=== PATIENT | female | born 1990 | race Caucasian/White ===

== ENCOUNTER 2018-09-06 04:50 | Inpatient (IN) | payer OTHER ==
[2018-09-06] MEDS ORDERED: BUTORPHANOL TARTRATE 1 MG/ML VIAL IVPB ONE (05:45)
[2018-09-06] MEDS ORDERED: PROMETHAZINE HCL 25 MG/1 ML VIAL IVPUSH ONE (05:45)
--- NOTE | 2018-09-06 05:51 | HP ---
Past Medical History - Admission Chief Complaint: Rupture of membranes at 2 am History of Present Illness: 28 y/o P0 female with SIUP at 38.4 weeks here with complaints of spontaneous rupture of membranes around 2 am. No VB. Occasional Ctx. +FM. complicated by anemia, otherwise no complications. - Past Medical History Cardiovascular: No: AFIB, HTN Pulmonary: No: Asthma, COPD Gastrointestinal: No: GERD, Ulcerative Colitis Hepatobiliary: No: Hepatitis B Renal/: No: UTI Reproductive: No: Fibroids, Polycystic Ovary Syndrome Heme/Onc: Yes: Anemia Infectious Disease: No: HIV, MRSA Psych: No: Bipolar, Depression - Past Surgical History Hx Myomectomy: No Hx Transabdominal Cerclage: No - Smoking History Smoking history: Never smoked Aproximately how many cigarettes per day: 0 - Alcohol/Substance Use Hx Alcohol Use: No - Social History ADL: Independent History of Recent Travel: No Home Medications - Allergies Allergies/Adverse Reactions: Allergies Allergy/AdvReac Type Severity Reaction Status Date / Time No Known Allergies Allergy Verified 02/09/16 17:16 - Home Medications Home Medications: Ambulatory Orders Ascorbic Acid [Vitamin C -] 500 mg PO DAILY #30 tablet 02/10/16 Ferrous Sulfate [Feosol] 325 mg PO DAILY #30 tablet 02/10/16 Levothyroxine [Synthroid -] 150 mcg PO DAILY 02/10/16 Review of Systems - Review of Systems Constitutional: reports: No Symptoms Eyes: reports: No Symptoms HENT: reports: No Symptoms Neck: reports: No Symptoms Cardiovascular: reports: No Symptoms Respiratory: reports: No Symptoms Gastrointestinal: reports: No Symptoms Genitourinary: reports: Other (leaking fluid) Breasts: reports: No Symptoms Reported Musculoskeletal: reports: No Symptoms Integumentary: reports: No Symptoms Neurological: reports: No Symptoms Endocrine: reports: No Symptoms Hematology/Lymphatic: reports: No Symptoms Psychiatric: reports: No Symptoms Physical Exam - Maternity Constitutional: Yes: Well Nourished, No Distress, Calm Eyes: Yes: Conjunctiva Clear, EOM Intact HENT: Yes: Atraumatic, Normocephalic Cardiovascular: Yes: Regular Rate and Rhythm Lungs: Clear to auscultation - Abdominal Exam/OB Fundal Height: 38 Number of Fetuses: Single Presentation: Vertex Contractions: Yes Regularity: Irregular Intensity: Mild Heart Rate (range): 130 Category: I Accelerations: Uniform Decelerations: None - Vaginal Exam/OB Dilatation (cm): 0 Effacement (%): 0 Amniotic Membrane Status: Ruptured (vaginal exam per nursing staff) Station: -3 - Physical Exam Psychiatric: Yes: Alert, Oriented Problem List - Problems (1) Spontaneous rupture of amniotic membranes Code(s): TSJ2599 - (2) Term Code(s): Z34.80 - ENCOUNTER FOR SUPRVSN OF NORMAL , UNSP TRIMESTER Assessment/Plan SIUP at 38+ weeks, SROM admit to L&D start IV fluids ok to ambulate if no contractions on her own will induce labor
[2018-09-06] MEDS ORDERED: DEXTROSE 5%-LACTATED RINGERS 1,000 ML IV ONE (06:15)
[2018-09-06 07:10] VITALS: BMI 26.1
[2018-09-06 07:17] LABS: BASO % 0.6 % (0-2.0); EOS % 0.8 % (0-4.5); HEMATOCRIT 32.8 % (32.4-45.2); HEMOGLOBIN 11.2 GM/dL (10.7-15.3); LYMPH % 18.9 % (8-40); MCH 28.7 pg (25.7-33.7); MCHC 34.1 g/dl (32.0-36.0); MEAN CELL VOLUME 84.1 fl (80-96); MEAN PLT VOLUME 8.9 fl (7.5-11.1); MONO % 7.9 % (3.8-10.2); NEUT % 71.8 % (42.8-82.8); PLATELET COUNT 241 K/MM3 (134-434); WHITE BLOOD COUNT 7.5 K/mm3 (4.0-10.0)
[2018-09-06 07:28] LABS: INR 0.84 (0.83-1.09); PROTHROMBIN TIME (PATIENT) 9.9 SEC (9.7-13.0)
[2018-09-06 07:31] LABS: ACTIVATED PTT 28.8 SECONDS (25.2-36.5)
[2018-09-06 07:46] LABS: ANION GAP 8 MMOL/L (8-16); BLOOD UREA NITROGEN 14 mg/dL (7-18); CALCIUM 8.3 mg/dL (8.5-10.1); CHLORIDE 106 mmol/L (98-107); CO2 23 mmol/L (21-32); CREATININE 0.4 mg/dL (0.55-1.3); GLUCOSE,RANDOM 78 mg/dL (74-106); POTASSIUM 3.8 mmol/L (3.5-5.1); SODIUM 136 mmol/L (136-145)
[2018-09-06] MEDS ORDERED: TUBERCULIN PPD 5 TU/0.1ML SYRINGE (IN PATIENT USE ONLY) ID ONE (09:30)
[2018-09-06] MEDS: DEXTROSE 5%-LACTATED RINGERS 1,000 ML IV SCH ×2 (13:26→22:00)
[2018-09-06] MEDS ORDERED: DINOPROSTONE 10 MG VAGINAL SUPPOSITORY VG ONE (18:29)
--- NOTE | 2018-09-06 18:29 | PN ---
Ante-Partal Exam - Subjective Subjective: Pt with mild contractions Vital Signs: Vital Signs Temperature 98.4 F 09/06/18 17:00 Pulse Rate 81 09/06/18 17:00 Respiratory Rate 20 09/06/18 17:00 Blood Pressure 100/51 L 09/06/18 17:00 O2 Sat by Pulse Oximetry (%) Bleeding: No Headache: No Visual changes: No Right upper quadrant pain: No - Contractions Contractions: No Monitor Mode: External - Exam during Labor Variability: Moderate Category: I Monitor Decelerations: None Exam: Vaginal Dilatation (cm): closed Effacement (%): long Amniotic Membrane Status: Ruptured Amniotic Fluid: Clear Presentation: Vertex - Intrapartum Hemorrhage Risk Risk Score: 0 Risk Level: Low Risk - Assessment/Plan Assessment/Plan: IUP at 38.6 weeks Cat 1 srom Plan cervidil
[2018-09-06] MEDS ORDERED: AMPICILLIN - 2 GM in SODIUM CHLORIDE 100 ML IVPB ONE (18:30)
[2018-09-06] MEDS ORDERED: AMPICILLIN SODIUM 2 GM VIAL ONE (20:02)
[2018-09-07] MEDS ORDERED: BUTORPHANOL TARTRATE 1 MG/ML VIAL ONE ×3 (00:15→07:53)
[2018-09-07] MEDS ORDERED: PROMETHAZINE HCL 25 MG/1 ML VIAL ONE ×2 (00:16→07:53)
[2018-09-07] MEDS ORDERED: AMPICILLIN SODIUM 1 GM VIAL ONE ×4 (00:19→13:04)
[2018-09-07] MEDS: AMPICILLIN - 1 GM in SODIUM CHLORIDE 100 ML IVPB SCH ×6 (04:00→18:33)
[2018-09-07] MEDS ORDERED: FENTANYL/BUPIVACAINE/NS/PF - PCEA - 50 ML DISP.SYRIN EP ONE (07:45)
[2018-09-07] MEDS ORDERED: OXYTOCIN 20 UNITS in 0.9% NS 20 UNIT/1,000 ML INFUS.BAG IV ONE (08:15)
[2018-09-07] MEDS ORDERED: LIDOCAINE HCL 1% PRESERVATIVE FREE - 30ML VIAL ONE (08:16)
[2018-09-07] MEDS ORDERED: BUTORPHANOL TARTRATE 2 MG/ML VIAL IVPUSH PRN (08:34)
--- NOTE | 2018-09-07 08:46 | PN ---
Ante-Partal Exam - Subjective Vital Signs: Vital Signs Temperature 98.7 F 09/07/18 07:00 Pulse Rate 63 09/07/18 08:00 Respiratory Rate 20 09/07/18 08:00 Blood Pressure 136/69 09/07/18 08:00 O2 Sat by Pulse Oximetry (%) Bleeding: No Headache: No Visual changes: No Right upper quadrant pain: No - Contractions Contractions: Yes Regularity: Regular Intensity: Moderate Monitor Mode: External - Exam during Labor Variability: Moderate Category: I Monitor Decelerations: None Exam: Vaginal Dilatation (cm): 9cm Presentation: Vertex Station: 0 - Intrapartum Hemorrhage Risk Risk Score: 0 Risk Level: Low Risk - Assessment/Plan Assessment/Plan: Active Labor Cat 1 Plan continue present management rashid Barraganergan
[2018-09-07] MEDS ORDERED: PROMETHAZINE HCL 25 MG/1 ML VIAL IVPB ONE (09:00)
--- NOTE | 2018-09-07 12:54 | PN ---
Ante-Partal Exam - Subjective Subjective: Pt with urge to push Vital Signs: Vital Signs Temperature 98.8 F 09/07/18 12:00 Pulse Rate 64 09/07/18 12:00 Respiratory Rate 20 09/07/18 12:00 Blood Pressure 108/60 09/07/18 12:00 O2 Sat by Pulse Oximetry (%) - Exam during Labor Category: II Monitor Accelerations: Present Monitor Decelerations: Variable Exam: Vaginal Dilatation (cm): 10 Amniotic Membrane Status: Ruptured Presentation: Vertex Station: +2 - Intrapartum Hemorrhage Risk Risk Score: 0 Risk Level: Low Risk - Assessment/Plan Assessment/Plan: Cat2 variable decels with good recovery 2nd stage anticipate vaginal delivery Plan Will continue with vaginal delivery
[2018-09-07] MEDS ORDERED: ONDANSETRON 4 MG/2 ML VIAL IVPUSH PRN (14:10)
[2018-09-07] MEDS ORDERED: morphine SULFATE/Preservative Free 0.5 MG/ML (1cc Syringe) EP ONE (14:10)
[2018-09-07] MEDS ORDERED: morphine SULFATE/Preservative Free 0.5 MG/ML (1cc Syringe) ONE (14:19)
--- NOTE | 2018-09-07 14:19 | PN ---
Ante-Partal Exam - Subjective Subjective: Pt unable to push Vital Signs: Vital Signs Temperature 98.8 F 09/07/18 12:00 Pulse Rate 64 09/07/18 12:00 Respiratory Rate 20 09/07/18 12:00 Blood Pressure 108/60 09/07/18 12:00 O2 Sat by Pulse Oximetry (%) Bleeding: No Headache: No Visual changes: No Right upper quadrant pain: No - Contractions Contractions: Yes Monitor Mode: External - Exam during Labor Heart Rate: 155 Variability: Minimal Category: II Exam: Vaginal Dilatation (cm): FD Amniotic Membrane Status: Ruptured Station: +2 - Intrapartum Hemorrhage Risk Risk Score: 1 Risk Level: Medium Risk - Assessment/Plan Assessment/Plan: Failure to Descend unable to push Plan Will call neonatology Will call anesthesia Section
[2018-09-07] MEDS ORDERED: ceFAZolin SODIUM 1 GM VIAL ONE (14:20)
[2018-09-07] MEDS ORDERED: CITRIC ACID/SODIUM CITRATE 30 ML UNIT-DOSE CUP PO ONE (14:25)
[2018-09-07] MEDS ORDERED: OXYTOCIN 10 UNITS/ML VIAL ONE (14:46)
[2018-09-07] MEDS ORDERED: MIDAZOLAM HCL 2 MG/2 ML SINGLE DOSE VIAL ONE (14:48)
[2018-09-07] MEDS ORDERED: KETOROLAC TROMETHAMINE 30 MG/1 ML VIAL ONE (14:52)
[2018-09-07] MEDS ORDERED: ELECTROLYTE-148 SOLN 1,000 ML IV SCH (14:55)
--- NOTE | 2018-09-07 15:14 | PN ---
Progress Note (short form) - Note Progress Note: Shipping Technician's note. I assisted Dr. Hopkins in C/section thorough out the whole case (Hopefully, being helpful). No complications. JR
[2018-09-07] MEDS ORDERED: ELECTROLYTE-148 SOLN 500 ML IV ONE (16:15)
--- NOTE | 2018-09-08 07:07 | OP ---
Operative Note - Note: Operative Date: 09/07/18 Pre-Operative Diagnosis: Faikure to Descend Operation: Primary low transverse Section Findings: Life male infant Nuchal cord X1 Post-Operative Diagnosis: Same as Pre-op Surgeon: Pattie Hopkins Tactical Response Group Officer: Holden Fraire Anesthesia: Spinal Estimated Blood Loss (mls): 500 Operative Report Dictated: Yes
--- NOTE | 2018-09-08 07:13 | PN ---
Progress Note (SOAP) - Subjective Chief Complaint: Pt doing well - Current Medications Current Medications: Active Medications Butorphanol Tartrate (Butorphanol Tartrate) 1 mg IVPUSH Q4H PRN PRN Reason: MODERATE PAIN Last Admin: 09/07/18 08:00 Dose: 1 mg Diphenhydramine HCl (Benadryl Injection -) 25 mg IVPUSH Q4H PRN PRN Reason: Pruritis Last Admin: 09/08/18 02:54 Dose: 25 mg Dextrose/Lactated Ringer's (D5-Lr -) 1,000 mls @ 125 mls/hr IV ASDIR [place] Last Admin: 09/06/18 22:00 Dose: 125 mls/hr Parenteral Electrolytes (Plasma-Lyte 148 -) 1,000 mls @ 125 mls/hr IV ASDIR [place] Ondansetron HCl (Zofran Injection) 4 mg IVPUSH Q4H PRN PRN Reason: NAUSEA - Objective Vital Signs: Vital Signs Temperature 98.5 F 09/08/18 06:00 Pulse Rate 56 L 09/08/18 06:00 Respiratory Rate 18 09/08/18 06:00 Blood Pressure 95/44 L 09/08/18 06:00 O2 Sat by Pulse Oximetry (%) 97 09/07/18 21:00 Constitutional: Yes: Well Nourished, No Distress Labs Lab Results: CBC, BMP 09/06/18 07:05 09/06/18 07:05 Problem List - Problems (1) Failure of descent in labor, delivered, current hospitalization Code(s): O62.2 - OTHER UTERINE INERTIA (2) Status post delivery Code(s): Z98.891 - HISTORY OF UTERINE SCAR FROM PREVIOUS SURGERY Assessment/Plan POD1 stable Plan continue present management
[2018-09-08] MEDS ORDERED: oxyCODONE HCL 5 MG TABLET PO PRN ×2 (07:51)
[2018-09-08] MEDS ORDERED: METHYLERGONOVINE MALEATE 0.2 MG/1 ML AMP IM PRN (07:51)
[2018-09-08] MEDS ORDERED: IBUPROFEN 800 MG/8 ML IJ IVPB PRN (07:51)
[2018-09-08] MEDS ORDERED: OXYTOCIN 20 UNITS in 0.9% NS 20 UNIT/1,000 ML INFUS.BAG IV SCH (08:00)
[2018-09-08] MEDS: LEVOTHYROXINE NA 150 MCG TABLET PO SCH (08:30)
[2018-09-08] MEDS: FERROUS SO4 325 MG TABLET (FP) PO SCH ×2 (09:00→18:28)
[2018-09-08] MEDS: ACETAMINOPHEN 325 MG TABLET (FP) PO PRN (09:20)
[2018-09-08] MEDS: IBUPROFEN 600 MG TABLET (FP) PO PRN ×2 (09:20→13:50)
[2018-09-08] MEDS: PRENATAL VITAMINS W/ FOLIC ACID TABLET (FP) PO SCH (10:30)
--- NOTE | 2018-09-08 12:38 | OP ---
DATE OF OPERATION: 09/07/2018 PREOPERATIVE DIAGNOSIS: Failure to progress, intrauterine at 39 weeks. OPERATION: Primary low-transverse section. POSTOPERATIVE DIAGNOSIS: Live male infant. SURGEON: Pattie Hopkins MD MULTIFOCAL BUTTON GRINDER: Dr. Fraire ANESTHESIA: Spinal. ANESTHESIOLOGIST: Chuck Hamm MD PROCEDURE: The patient was taken to the operating room, placed in supine position, prepped and draped in the usual sterile fashion. Timeout was performed in accordance with hospital regulation. A Pfannenstiel skin incision was made with a scalpel. Cautery was then used to go through layers of abdominal wall to the level of the fascia. Fascia was cut in the midline and cautery was then used to open the fascia in smiling fashion. Kochers then used to bluntly and sharply dissect the rectus muscle at the fascia, muscles split in midline. Peritoneal cavity was then entered and carried up and down, with bladder retractors then placed. Vesicouterine reflection was then entered. Bladder was bluntly dissected out of the operative field. Scalpel was then used to make a low transverse uterine incision. The incision was carried up with the use of bandage scissors. A live male was delivered in OT position. Nose and mouth suction performed. Shoulders were delivered without difficulty. Cord was clamped and cut, cord blood obtained, cord ph sampling was done. Uterus exteriorized and cleaned with clean lap pads. Uterine incision then closed using 0 Biosyn suture, 1st layer in continuous interlocking, 2nd layer imbricating the layer. Extension was then closed in 2 layers using 0 Biosyn suture. Uterus interiorized. Tubes and ovaries noted to be normal. Abdominal cavity cleaned with clean lap pads. Peritoneum closed using 0 Biosyn suture. Fascia was approximated in midline using 0 Vicryl suture. Rectus muscle was approximated in midline using 0 Vicryl suture. Fascia was then closed using 0 Vicryl suture in 2 parts continuous. Skin was then closed using 0 Vicryl in subcuticular fashion. Wound was washed and dressed. Patient tolerated procedure. Steri- Strip placed. Estimated blood loss 500 mL. PATTIE HOPKINS M.D. [id number] MTDD
[2018-09-08] MEDS: DEXTROSE 5%-LACTATED RINGERS 1,000 ML IV SCH (15:00)
[2018-09-09] MEDS: ACETAMINOPHEN 325 MG TABLET (FP) PO PRN ×5 (00:08→23:41)
[2018-09-09] MEDS: IBUPROFEN 600 MG TABLET (FP) PO PRN ×5 (00:09→23:40)
[2018-09-09] MEDS: LEVOTHYROXINE NA 150 MCG TABLET PO SCH (06:30)
[2018-09-09] MEDS ORDERED: BISACODYL 10 MG SUPP.RECT RC PRN (07:51)
[2018-09-09 08:32] LABS: BASO % 0.4 % (0-2.0); EOS % 0.2 % (0-4.5); HEMATOCRIT 27.2 % (32.4-45.2); HEMOGLOBIN 9.2 GM/dL (10.7-15.3); LYMPH % 10.9 % (8-40); MCH 28.6 pg (25.7-33.7); MEAN CELL VOLUME 83.9 fl (80-96); MEAN PLT VOLUME 8.4 fl (7.5-11.1); MONO % 4.4 % (3.8-10.2); NEUT % 84.1 % (42.8-82.8); PLATELET COUNT 229 K/MM3 (134-434); RBC 3.23 M/mm3 (3.60-5.2); RDW 18.6 % (11.6-15.6)
[2018-09-09] MEDS: SIMETHICONE 80 MG TAB.CHEW (FP) PO PRN (08:33)
[2018-09-09] MEDS: FERROUS SO4 325 MG TABLET (FP) PO SCH ×2 (08:33→17:13)
[2018-09-09] MEDS: PRENATAL VITAMINS W/ FOLIC ACID TABLET (FP) PO SCH (09:55)
[2018-09-10] MEDS: LEVOTHYROXINE NA 150 MCG TABLET PO SCH (06:03)
[2018-09-10] MEDS: IBUPROFEN 600 MG TABLET (FP) PO PRN ×3 (08:07→21:26)
[2018-09-10] MEDS: SIMETHICONE 80 MG TAB.CHEW (FP) PO PRN ×3 (08:08→21:26)
[2018-09-10] MEDS: ACETAMINOPHEN 325 MG TABLET (FP) PO PRN ×3 (08:08→21:26)
[2018-09-10] MEDS: FERROUS SO4 325 MG TABLET (FP) PO SCH ×2 (08:08→16:35)
[2018-09-10] MEDS: PRENATAL VITAMINS W/ FOLIC ACID TABLET (FP) PO SCH (10:13)
--- NOTE | 2018-09-10 22:21 | PN ---
Progress Note (SOAP) - Subjective Chief Complaint: Pt doing well - Current Medications Current Medications: Active Medications Acetaminophen (Tylenol -) 650 mg PO Q4H PRN PRN Reason: PAIN Last Admin: 09/10/18 21:26 Dose: 650 mg Bisacodyl (Dulcolax Suppository -) 10 mg RC PRN PRN PRN Reason: CONSTIPATION Diphenhydramine HCl (Benadryl Injection -) 25 mg IVPUSH Q4H PRN PRN Reason: Pruritis Last Admin: 09/08/18 02:54 Dose: 25 mg Ferrous Sulfate (Feosol -) 325 mg PO BIDWM [facility] Last Admin: 09/10/18 16:35 Dose: 325 mg Ibuprofen (Caldolor Injection -) 800 mg IVPB Q8H PRN PRN Reason: FEVER Ibuprofen (Motrin -) 600 mg PO Q4H PRN PRN Reason: PAIN LEVEL 1 - 3 Last Admin: 09/10/18 21:26 Dose: 600 mg Levothyroxine Sodium (Synthroid -) 150 mcg PO DAILY@0700 [facility] Last Admin: 09/10/18 06:03 Dose: 150 mcg Methylergonovine Maleate (Methergine Injection -) 0.2 mg IM Q4H PRN PRN Reason: Excessive Bleeding (L&D) Ondansetron HCl (Zofran Injection) 4 mg IVPUSH Q4H PRN PRN Reason: NAUSEA Oxycodone HCl (Roxicodone -) 5 mg PO Q4H PRN PRN Reason: PAIN LEVEL 4 - 6 Last Admin: 09/08/18 22:22 Dose: 5 mg Oxycodone HCl (Roxicodone -) 10 mg PO Q4H PRN PRN Reason: PAIN LEVEL 7 - 10 Multivit/Folic Acid/Iron ( Vitamins (Sjr) -) 1 tab PO DAILY [facility] Last Admin: 09/10/18 10:13 Dose: 1 tab Simethicone (Mylicon -) 80 mg PO Q4H PRN PRN Reason: GAS Last Admin: 09/10/18 21:26 Dose: 80 mg - Objective Vital Signs: Vital Signs Temperature 98.1 F 09/10/18 08:54 Pulse Rate 54 L 09/10/18 08:54 Respiratory Rate 18 09/10/18 08:54 Blood Pressure 123/68 09/10/18 08:54 O2 Sat by Pulse Oximetry (%) 97 09/07/18 21:00 Constitutional: Yes: Well Nourished, No Distress Cardiovascular: Yes: WNL Respiratory: Yes: WNL ....Post : Yes: Uterus firm, Uterus non-tender Breast(s): Yes: WNL Musculoskeletal: Yes: WNL Extremities: Yes: WNL Edema: No Wound/Incision: Yes: Clean/Dry, Well Approximated, Steri Strips, Open to air Psychiatric: Yes: WNL, Alert, Oriented Labs Lab Results: CBC, BMP 09/09/18 07:30 09/06/18 07:05 Problem List - Problems (1) Failure of descent in labor, delivered, current hospitalization Code(s): O62.2 - OTHER UTERINE INERTIA (2) Status post delivery Code(s): Z98.891 - HISTORY OF UTERINE SCAR FROM PREVIOUS SURGERY Assessment/Plan POD3 stable Plan continue present management
[2018-09-11] MEDS: LEVOTHYROXINE NA 150 MCG TABLET PO SCH (06:29)
[2018-09-11 06:48] LABS: BASO % 0.3 % (0-2.0); EOS % 1.5 % (0-4.5); HEMATOCRIT 28.3 % (32.4-45.2); HEMOGLOBIN 9.4 GM/dL (10.7-15.3); LYMPH % 17.8 % (8-40); MCH 28.3 pg (25.7-33.7); MCHC 33.3 g/dl (32.0-36.0); MEAN PLT VOLUME 8.1 fl (7.5-11.1); MONO % 5.4 % (3.8-10.2); PLATELET COUNT 261 K/MM3 (134-434); RBC 3.33 M/mm3 (3.60-5.2); RDW 18.7 % (11.6-15.6); WHITE BLOOD COUNT 8.8 K/mm3 (4.0-10.0)
--- NOTE | 2018-09-11 07:53 | DS ---
Physical Exam-POSITION CLASSIFIER Vital Signs: Vital Signs Temperature 98.3 F 09/10/18 22:00 Pulse Rate 68 09/10/18 22:00 Respiratory Rate 18 09/10/18 22:00 Blood Pressure 97/70 09/10/18 22:00 O2 Sat by Pulse Oximetry (%) 97 09/07/18 21:00 Constitutional: Yes: Well Nourished Eyes: Yes: Conjunctiva Clear HENT: Yes: Atraumatic Neck: Yes: Supple Cardiovascular: Yes: Regular Rate and Rhythm Respiratory: Yes: Regular Gastrointestinal: Yes: Normal Bowel Sounds ...Rectal Exam: Yes: WNL Pelvis: Yes: WNL External Genitalia: Yes: Normal Vaginal Exam: Yes: Normal Cervix: Yes: Normal Uterus: Yes: Normal ....Post : Yes: Uterus firm Musculoskeletal: Yes: WNL Extremities: Yes: WNL Wound/Incision: Yes: Well Approximated, Steri Strips (in place) Neurological: Yes: Alert, Oriented Psychiatric: Yes: Alert, Oriented Labs: CBC, BMP 09/11/18 05:56 09/06/18 07:05 Delivery - Delivery Type of Anesthesia: Spinal Episiotomy/Laceration: None EBL (cc): 500 Delivery, Single - Stages of Labor Date 1st Stage Initiatied: 09/07/18 Time 1st Stage Initiated: 02:00 Date of Delivery: 09/07/18 Time of Delivery: 14:47 Time Placenta Delivered: 14:48 - Condition of Infant [place] [employer]/Aquatic Facility Manager Present: Yes Name: Jacquelin Omalley Infant Gender: Male Weight: 5 lb 15 oz Position: OT Total Hours ROM (Hrs/Mins): 36 HOURS - 48 MINS - 1 Minute Total Score: 9 5 Minutes Total Score: 9 - [place] Feeding Plan Initial Plan: Elected not to breastfeed exclusively throughout hospitalization Discharge Summary Reason For Visit: LABOR Current Active Problems Failure of descent in labor, delivered, current hospitalization (Acute) Spontaneous rupture of amniotic membranes (Acute) Status post delivery (Acute) Term (Acute) Procedures: Principal: Primary Low transverse Hospital Course: Routine post op care - Instructions Diet, Activity, Other Instructions: Regular diet No driving, no lifting x 4 weeks F/U with MD in 2 weeks Referrals: Pattie Hopkins MD [Staff Physician] - Disposition: HOME - Home Medications Comprehensive Discharge Medication List: Ambulatory Orders Ascorbic Acid [Vitamin C -] 500 mg PO DAILY #30 tablet 02/10/16 Ferrous Sulfate [Feosol] 325 mg PO DAILY #30 tablet 02/10/16 Levothyroxine [Synthroid -] 150 mcg PO DAILY 02/10/16
[2018-09-11 08:19] VITALS: BP 111/54; PULSE 52; TEMP 97.8
[2018-09-11] MEDS: SIMETHICONE 80 MG TAB.CHEW (FP) PO PRN (08:29)
[2018-09-11] MEDS: FERROUS SO4 325 MG TABLET (FP) PO SCH (08:29)
[2018-09-11] MEDS: IBUPROFEN 600 MG TABLET (FP) PO PRN (08:29)
[2018-09-11] MEDS: ACETAMINOPHEN 325 MG TABLET (FP) PO PRN (08:30)
[2018-09-11] MEDS: PRENATAL VITAMINS W/ FOLIC ACID TABLET (FP) PO SCH (09:44)
--- NOTE | 2018-09-13 12:46 | PATH ---
Surgical Pathology Report Patient Name: BEBA PUGA [facility]. Rec. #: [id number] /Age/Gender: 1990 (Age: 28) / F Account: [id number] Location: [facility] OBS/WELDING PROCESS ENGINEER Taken: 09/07/2018 Received: 09/09/2018 Reported: 09/13/2018 Physicians: Muna Chinchilla M.D. Specimen(s) Received PLACENTA Clinical History 39 weeks, History of hypothyroid, ovarian cyst Final Diagnosis PLACENTA, DELIVERY: FOCALLY DISRUPTED SMALL (360 GRAM) THIRD TRIMESTER PLACENTA WITH INFARCT, INTERVILLOUS FIBRIN DEPOSITION, THREE VESSEL UMBILICAL CORD AND UNREMARKABLE PLACENTAL MEMBRANES. Electronically Signed Shun Taveras M.D. Gross Description The specimen is received fresh labeled placenta and is a 360 gram, 14.0 x 12.0 x 3.5 cm. placenta with attached membranes and umbilical cord. The attached membranes are reveles, thick, cloudy and insert marginally. The umbilical cord measures 10 cm. in length and averages 0.8 cm. in diameter. The cord inserts eccentrically, 1.5 cm. to the nearest margin. No true knots or strictures are identified. Cut surface of the umbilical cord reveals 3 vessels. The surface is fox-blue with minimal fibrin deposition and appropriate caliber vessels. The maternal surface is red-brown with focal defects. Sectioning reveals red-brown, spongy parenchyma. No lesions are identified. Network Support Analyst sections are submitted in three cassettes as follows: 1- membrane rolls and umbilical cord; 2-3- full thickness sections of placenta. /09/12/2018 [facility]/09/12/2018
== END 2018-09-11 15:50 | disposition home or self-care (01) | DRG 540 ==
LOC: JLDR 04:50 → J3W 09-07 17:00
PROVIDERS: ADMIT Obstetrics & Gynecology; ATTEND Obstetrics & Gynecology
PROC: 10D00Z1 Extraction of Products of Conception, Low, Open Approach (ICD-10-PCS; principal; 2018-09-07)
DX: O62.1 Secondary uterine inertia (principal); Z3A.39 39 weeks gestation of pregnancy; Z37.0 Single live birth
CPT/HCPCS: 36415; 36600; 80048; 82803; 85025; 85610; 85730; 86593; 86850; 86900; 86901; 87389; 88307-TC

== ENCOUNTER 2023-01-05 13:40 | Inpatient (IN) | payer OTHER ==
[2023-01-05] MEDS ORDERED: ELECTROLYTE-148 SOLN 500 ML IV ONE (14:07)
[2023-01-05] MEDS ORDERED: CITRIC ACID/SODIUM CITRATE 30 ML UNIT-DOSE CUP PO ONE (14:07)
[2023-01-05] MEDS ORDERED: ELECTROLYTE-148 SOLN 1,000 ML IV SCH (14:15)
[2023-01-05] MEDS ORDERED: ONDANSETRON 4 MG/2 ML VIAL IVPUSH PRN (15:01)
[2023-01-05] MEDS ORDERED: morphine SULFATE/PF 1 MG/2 ML (2cc Syringe - QUVA) ONE (15:03)
[2023-01-05] MEDS ORDERED: FENTANYL CITRATE/PF 50 MCG/ML VIAL ONE (15:03)
[2023-01-05 15:13] LABS: BASO % 0.4 % (0-2.0); EOS % 0.1 % (0-4.5); HEMATOCRIT 38.9 % (32.4-45.2); HEMOGLOBIN 12.6 GM/dL (10.7-15.3); LYMPH % 7.1 % (8-40); MCH 28.4 pg (25.7-33.7); MCHC 32.4 g/dl (32.0-36.0); MEAN CELL VOLUME 87.7 fl (80-96); MEAN PLT VOLUME 9.7 fl (7.5-11.1); MONO % 2.8 % (3.8-10.2); NEUT % 89.6 % (42.8-82.8); PLATELET COUNT 222 10^3/uL (134-434); RBC 4.44 M/mm3 (3.60-5.2); RDW 19.9 % (11.6-15.6); WHITE BLOOD COUNT 10.1 K/mm3 (4.0-10.0)
[2023-01-05 15:16] LABS: INR 0.92 (0.83-1.09); PROTHROMBIN TIME (PATIENT) 10.7 SEC (9.7-13.0)
[2023-01-05] MEDS ORDERED: PHENYLEPHRINE HCL 10 MG/1 ML SINGLE DOSE VIAL ONE (15:26)
[2023-01-05] MEDS ORDERED: ceFAZolin SODIUM 1 GM VIAL ONE (15:28)
[2023-01-05] MEDS ORDERED: ONDANSETRON 4 MG/2 ML VIAL ONE (15:31)
[2023-01-05 15:33] VITALS: BMI 27.6
[2023-01-05] MEDS ORDERED: MIDAZOLAM HCL 2 MG/2 ML SINGLE DOSE VIAL ONE (15:35)
[2023-01-05] MEDS ORDERED: OXYTOCIN 10 UNITS/ML VIAL ONE (15:36)
[2023-01-05] MEDS ORDERED: KETAMINE HCL 500 MG/10 ML VIAL ONE (15:44)
[2023-01-05 15:55] LABS: POTASSIUM 3.8 mmol/L (3.5-5.1)
[2023-01-05 15:56] LABS: CALCIUM 9.1 mg/dL (8.5-10.1)
[2023-01-05 15:57] LABS: BLOOD UREA NITROGEN 8.6 mg/dL (7-18)
[2023-01-05 16:00] LABS: CREATININE 0.6 mg/dL (0.55-1.3)
[2023-01-05] MEDS ORDERED: OXYTOCIN 20 UNITS in 0.9% NS 20 UNIT/1,000 ML INFUS.BAG IV ONE (17:06)
[2023-01-05 17:09] LABS: HIV INTERPRETATION NEGATIVE (NEGATIVE)
[2023-01-05] MEDS: OXYTOCIN 20 UNITS in 0.9% NS 20 UNIT/1,000 ML INFUS.BAG IV SCH (17:15)
[2023-01-05 17:44] LABS: COCAINE, UR NEGATIVE (NEGATIVE); METHADONE, UR NEGATIVE (NEGATIVE); PHENCYCLIDINE,URINE NEGATIVE (NEGATIVE)
[2023-01-05 17:45] LABS: URINE BARBITURATES NEGATIVE (NEGATIVE)
[2023-01-05 17:47] LABS: OPIATES, URI POSITIVE (NEGATIVE); URINE AMPHETAMINES NEGATIVE (NEGATIVE); URINE BENZODIAZEPINES POSITIVE (NEGATIVE)
[2023-01-05] MEDS: SIMETHICONE 80 MG TAB.CHEW (FP) PO PRN (21:44)
[2023-01-05] MEDS: IBUPROFEN 800 MG/8 ML IJ IVPB PRN (22:27)
[2023-01-06] MEDS: OXYTOCIN 20 UNITS in 0.9% NS 20 UNIT/1,000 ML INFUS.BAG IV SCH (00:48)
[2023-01-06] MEDS ORDERED: oxyCODONE HCL 5 MG TABLET PO PRN (02:29)
[2023-01-06] MEDS: LEVOTHYROXINE NA 125 MCG TABLET (FP) PO SCH (06:57)
[2023-01-06 09:07] LABS: BASO % 0.4 % (0-2.0); EOS % 0.2 % (0-4.5); HEMATOCRIT 33.9 % (32.4-45.2); LYMPH % 11.8 % (8-40); MCH 28.8 pg (25.7-33.7); MCHC 32.4 g/dl (32.0-36.0); MONO % 4.5 % (3.8-10.2); NEUT % 83.1 % (42.8-82.8); PLATELET COUNT 193 10^3/uL (134-434); RBC 3.81 M/mm3 (3.60-5.2); RDW 20.3 % (11.6-15.6); WHITE BLOOD COUNT 9.8 K/mm3 (4.0-10.0)
[2023-01-06] MEDS: IBUPROFEN 800 MG/8 ML IJ IVPB PRN (10:08)
[2023-01-06] MEDS ORDERED: BISACODYL 10 MG SUPP.RECT RC PRN (14:29)
[2023-01-06] MEDS: IBUPROFEN 600 MG TABLET (FP) PO PRN ×2 (16:26→23:24)
[2023-01-07] MEDS: LEVOTHYROXINE NA 125 MCG TABLET (FP) PO SCH (06:21)
[2023-01-07] MEDS: IBUPROFEN 600 MG TABLET (FP) PO PRN ×3 (06:22→17:47)
[2023-01-07] MEDS: SIMETHICONE 80 MG TAB.CHEW (FP) PO PRN (17:00)
[2023-01-07] MEDS: ACETAMINOPHEN 325 MG TABLET (FP) PO PRN (19:35)
[2023-01-08] MEDS: IBUPROFEN 600 MG TABLET (FP) PO PRN (05:48)
[2023-01-08] MEDS: LEVOTHYROXINE NA 125 MCG TABLET (FP) PO SCH (06:00)
[2023-01-08 07:15] LABS: BASO % 0.5 % (0-2.0); EOS % 0.8 % (0-4.5); HEMATOCRIT 29.1 % (32.4-45.2); HEMOGLOBIN 9.5 GM/dL (10.7-15.3); MCHC 32.8 g/dl (32.0-36.0); MEAN CELL VOLUME 88.5 fl (80-96); MEAN PLT VOLUME 9.1 fl (7.5-11.1); MONO % 4.6 % (3.8-10.2); NEUT % 73.1 % (42.8-82.8); PLATELET COUNT 188 10^3/uL (134-434); RBC 3.29 M/mm3 (3.60-5.2); RDW 19.3 % (11.6-15.6); WHITE BLOOD COUNT 6.8 K/mm3 (4.0-10.0)
[2023-01-08 08:17] VITALS: BP 99/55; RESP 18; TEMP 97.7
[2023-01-08 08:20] VITALS: PULSE 58
[2023-01-08] MEDS: ACETAMINOPHEN 325 MG TABLET (FP) PO PRN (08:59)
[2023-01-08] MEDS: SIMETHICONE 80 MG TAB.CHEW (FP) PO PRN (09:00)
== END 2023-01-08 15:00 | disposition home or self-care (01) | DRG 540 ==
LOC: JDEL 13:40 → JLDR 14:05 → J3W 18:05
PROVIDERS: ADMIT Student in an Organized Health Care Education/Training Program; ATTEND Student in an Organized Health Care Education/Training Program
PROC: 10D00Z1 Extraction of Products of Conception, Low, Open Approach (ICD-10-PCS; principal; 2023-01-05)
DX: O34.211 Maternal care for low transverse scar from previous cesarean delivery (principal); O99.284 Endocrine, nutritional and metabolic diseases complicating childbirth; E03.9 Hypothyroidism, unspecified; Z3A.37 37 weeks gestation of pregnancy; Z37.0 Single live birth
CPT/HCPCS: 36415; 80048; 80307; 85025; 85610; 85730; 86780; 86850; 86900; 86901; 87389; 88307-TC; 94010